=== PATIENT | male | born 1980 | race Caucasian/White ===

== ENCOUNTER 2018-10-26 11:26 | Inpatient (IN) ==
[2018-10-26] MEDS ORDERED: 0.9 % Sodium Chloride 1,000 ML IVC ONE (12:49)
[2018-10-26] MEDS ORDERED: Isovue-370 500 ML BOTTLE IVP ONE (12:49)
[2018-10-26] MEDS ORDERED: Vancomycin 1,750 MG in 0.9 % Sodium Chloride 250 ML IVPB STA (13:13)
[2018-10-26 13:19] LABS: Basophils # 0.1 K/mcL (0.0-0.2); Basophils % 0.7 %; Eosinophils # 0.4 K/mcL (0.0-0.6); Eosinophils % 6.1 %; Hematocrit 41.5 % (37.5-50.1); Hemoglobin 14.3 g/dL (12.9-16.9); Immature Granulocytes % 0.3 % (0-4); Lymphocytes # 2.5 K/mcL (0.6-4.6); Lymphocytes % 35.3 %; Mean Corpuscular HGB Conc 34.5 g/dL (31.6-35.5); Mean Corpuscular Hemoglobin 29.9 pg (28.0-33.3); Mean Corpuscular Volume 86.8 fL (83.0-100.0); Mean Platelet Volume 8.3 fL (9.4-12.4); Monocytes # 0.7 K/mcL (0.0-1.3); Neutrophils # 3.4 K/mcL (1.6-8.9); Platelet Count 286 K/mcL (140-400); Red Blood Count 4.78 M/mcL (4.19-5.50); Red Cell Distribution Width 12.5 % (11.5-14.5); Segmented Neutrophils % 47.6 %
[2018-10-26 13:44] LABS: BUN/Creatinine Ratio 14 (6-26); Blood Urea Nitrogen 15 mg/dL (6-20); Calcium 9.1 mg/dL (8.6-10.3); Carbon Dioxide 28 mEq/L (23-29); Chloride 104 mEq/L (98-107); Glucose 106 mg/dL (70-105); Osmolality,Calculated 287 (280-300); Potassium 4.2 mEq/L (3.5-5.1); Sodium 138 mEq/L (136-145); eGFR For Non-African Americans > 60 (> 60)
[2018-10-26 14:25] LABS: Bilirubin,Urine Small (Negative); Blood,Urine Negative (Negative); Clarity,Urine Clear (Clear); Color,Urine Dark Yellow (Yellow); Glucose,Urine (UA) Normal (Normal); Ketones,Urine Negative (Negative); Leukocyte Esterase,Urine Small (Negative); Nitrite,Urine Negative (Negative); Protein,Urine Negative (Neg-Trace); Specific Gravity,Urine 1.022 (1.010-1.025); Urobilinogen,Urine Normal (Normal)
[2018-10-26 14:28] LABS: Bacteria,Urine None Seen per hpf (None-Few); Hyaline Casts,Urine Few per lpf (None-Few); Squamous Epithelial Cell,Urine Many per lpf (None-Few)
[2018-10-26] MEDS ORDERED: Ondansetron 4 MG/2 ML VIAL IVP PRN (15:27)
[2018-10-26] MEDS ORDERED: Ibuprofen 600 MG TABLET PO PRN (15:27)
[2018-10-26] MEDS ORDERED: *HR* OxyCODONE Immed Rel 5 MG TABLET PO PRN (15:39)
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
[2018-10-26] MEDS: Piperacillin/Tazobactam 3.375 GM in 0.9 % Sodium Chloride Mini Bag 100 ML IVPB SCH ×2 (18:35→23:51)
[2018-10-26] MEDS: *HR* OxyCODONE/APAP 5/325 TABLET PO PRN (18:35)
[2018-10-27] MEDS: *HR* OxyCODONE/APAP 5/325 TABLET PO PRN ×2 (04:30→20:18)
[2018-10-27] MEDS: Pantoprazole 40 MG VIAL IVP SCH (05:37)
[2018-10-27 07:17] LABS: Basophils % 0.4 %; Eosinophils # 0.5 K/mcL (0.0-0.6); Eosinophils % 6.7 %; Hematocrit 39.3 % (37.5-50.1); Hemoglobin 13.5 g/dL (12.9-16.9); Immature Granulocytes % 0.1 % (0-4); Lymphocytes # 2.2 K/mcL (0.6-4.6); Lymphocytes % 30.7 %; Mean Corpuscular HGB Conc 34.4 g/dL (31.6-35.5); Mean Corpuscular Hemoglobin 29.8 pg (28.0-33.3); Mean Corpuscular Volume 86.8 fL (83.0-100.0); Mean Platelet Volume 8.2 fL (9.4-12.4); Monocytes # 0.5 K/mcL (0.0-1.3); Monocytes % 7.4 %; Neutrophils # 3.9 K/mcL (1.6-8.9); Platelet Count 256 K/mcL (140-400); Red Blood Count 4.53 M/mcL (4.19-5.50); Red Cell Distribution Width 12.4 % (11.5-14.5); Segmented Neutrophils % 54.7 %
[2018-10-27 07:39] LABS: BUN/Creatinine Ratio 11 (6-26); Blood Urea Nitrogen 12 mg/dL (6-20); Calcium 8.6 mg/dL (8.6-10.3); Carbon Dioxide 26 mEq/L (23-29); Chloride 104 mEq/L (98-107); Glucose 97 mg/dL (70-105); Osmolality,Calculated 286 (280-300); Potassium 4.2 mEq/L (3.5-5.1); Sodium 138 mEq/L (136-145); eGFR For Non-African Americans > 60 (> 60)
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
[2018-10-27] MEDS ORDERED: Folic Acid 1 MG TABLET PO SCH (09:00)
[2018-10-27] MEDS: Piperacillin/Tazobactam 3.375 GM in 0.9 % Sodium Chloride Mini Bag 100 ML IVPB SCH ×3 (09:05→23:56)
--- NOTE | 2018-10-27 14:23 | Discharge Summary ---
<Lisy Carmichael - Last Filed: 10/28/18 10:11> Orders not resulted at time of discharge: Pending orders 10/26/18 13:06 Culture,Blood [BC] Stat Date of Encounter: 10/28/18 Time of Encounter: 06:15 - Discharge Diagnosis (1) Cellulitis Priority: Primary Status: Acute Qualifiers: Site of cellulitis: trunk Site of cellulitis of trunk: abdominal wall Qualified Code(s): L03.311 - Cellulitis of abdominal wall (2) Chronic pain Priority: Secondary Status: Chronic Qualifiers: Qualified Code(s): G89.29 - Other chronic pain General Surgery Exam Initial Vital Signs Temp Pulse Resp BP Pulse Ox 98.0 F 65 16 125/77 97 10/26/18 11:51 10/26/18 11:51 10/26/18 11:51 10/26/18 11:51 10/26/18 11:51 - Additional Findings VITAL SIGNS: Reviewed. See [facility] GENERAL: In no apparent distress. HEENT: Normocephalic, atraumatic, pupils are equal and reactive, extraocular motions intact, there is no JVD noted. CHEST/RESPIRATORY: The thorax is free from signs of trauma. Lung sounds: clear to auscultation, normal respiratory effort CARDIAC: Regular rate and rhythm. Normal S1 and S2, without murmurs, gallops, or rubs. VASCULAR: No Edema. ABDOMEN: Soft, nontender, bowel sounds present, nondistended INCISION: Surgical incision is clean, dry, and intact. There is mild ecchymosis that is healing with warmth at infraumbilical region. Erythema is resolved. No purulence, bleeding, or drainage. No swelling. No fluctuance. MUSCULOSKELETAL: Good range of motion of all major joints. Extremities without clubbing, cyanosis or edema. NEUROLOGIC EXAM: Alert and oriented x 3. Speech normal. Follows commands. PSYCHIATRIC: Mood normal. SKIN: No rash or lesions. - Hospital Course Hospital course: Mr. Parkinson is a 38 year old male with past medical history of psoriasis on humira, chronic pain on Percocet and oxycodone, and migraine headaches. Patient recently had repair of umbilical hernia with mesh on 10/22/[address] Fam. Patient presented to ER on 10/26/18 with complaint of worsening redness of surgical site. Patient states redness started on 10/24. His mother, a nurse, marked around the borders. Next day, redness went past marked borders. Went to urgent care where he was prescribed Bactrim. Redness worsened after one day on bactrim, and patient came to ER. In the ER, patient had normal vitals and was afebrile. CBC, BMP, and UA were unremarkable. Exam showed erythema and ecchymosis with warmth around periumbilical incision site, extending downward in gravity-dependent fashion. CT abd/pelvis showed mild induration at periumbilical region with trace subcutaneous gas and fluid, likely postoperative. There was no abscess. Patient was given IVF and one dose of vancomycin. Patient was admitted to surgery service. Differential was cellulitis vs ecchymosis. Patient was started on zosyn. There was clinical improvement with resolution of erythema. Patient denies site tenderness, incisional pain, abdominal pain, nausea, fever. Passing flatus. Patient reports he has court date on 10/28. Will discharge with prescription for keflex. - Time Spent with Patient Total time spent providing and/or coordinating discharge services: Greater than 30 minutes (42 minutes) - Discharge Medications Home Medications: Citalopram [CeleXA] 20 mg PO DAILY 10/26/16 [History] Clobetasol Propionate 0.05% [Temovate] 1 appl TP BID PRN 10/26/16 [History] Oxycodone HCl/Acetaminophen [Percocet 10-325 mg Tablet] 1 tab PO Q6H PRN 10/26/16 [History] Adalimumab [Humira] 40 mg SQ Q2W 10/22/18 [History] Meclizine HCl [Verticalm] 25 mg PO TID PRN 10/22/18 [History] Metoclopramide [Reglan] 10 mg PO BID 10/22/18 [History] OxyCODONE Immed Rel [Roxicodone 10 MG] 10 mg PO Q4H 10/22/18 [History] RX: Folic Acid 1 mg PO DAILY 10/22/18 [History] RX: Ibuprofen [Motrin] 800 mg PO TID PRN 10/22/18 [History] Triamcinolone Acet 0.1% CRM [Kenalog] 1 appl TP BID PRN 10/22/18 [History] RX: Docusate Sodium 100 mg PO DAILY #10 capsule 10/25/18 [Rx] SUMAtriptan Succinate [Imitrex] 100 mg PO BID PRN 10/27/18 [History] cephALEXin [Keflex] 500 mg PO QID 14 Days #56 capsule 10/27/18 [Rx] Allergies/Adverse Reactions: Allergy/AdvReac Type Severity Reaction Status Date / Time No Known Allergies Allergy Verified 10/25/18 09:01 Date of admission: 10/26/18 16:06 Primary care physician: Celsa Quiñonez Discharging clinician: Juan F Fam Anticipated date of discharge: 10/28/18 Labs on day of discharge: Labs from last 24 hours 10/27/18 10/27/18 10/26/18 06:48 06:48 13:13 WBC 7.0 RBC 4.53 Hgb 13.5 Hct 39.3 MCV 86.8 MCH 29.8 MCHC 34.4 RDW 12.4 Plt Count 256 MPV 8.2 L Immature Gran % 0.1 Seg Neutrophils % 54.7 Lymphocytes % 30.7 Monocytes % 7.4 Eosinophils % 6.7 Basophils % 0.4 Neutrophils # 3.9 Lymphocytes # 2.2 Monocytes # 0.5 Eosinophils # 0.5 Basophils # 0.0 Sodium 138 Potassium 4.2 Chloride 104 Carbon Dioxide 26 BUN 12 Creatinine 1.09 Est GFR ( Amer) > 60 Est GFR (Non-Af Amer) > 60 BUN/Creatinine Ratio 11 Glucose 97 Calculated Osmolality 286 Calcium 8.6 Ur Specimen Adequacy See below A Urine Color Dark Yellow Urine Clarity Clear Urine pH 6.0 Ur Specific [place] 1.022 Urine Protein Negative Urine Glucose (UA) Normal Urine Ketones Negative Urine Blood Negative Urine Nitrite Negative Urine Bilirubin Small H Urine Urobilinogen Normal Ur Leukocyte Esterase Small H Urine Microscopic RBC 5-15 H Urine Microscopic WBC 5-15 H Ur Squamous Epith Cells Many H Urine Bacteria None Seen Hyaline Casts Few Ur Culture Indicated? NO. A Preliminary micro results at discharge 10/26/18 13:06 Blood Culture - Preliminary Peripheral Venipuncture Culture is incubating and being continuously monitored for growth. Final report to follow. 10/26/18 13:06 Blood Culture - Preliminary Peripheral Venipuncture Culture is incubating and being continuously monitored for growth. Final report to follow. - Impressions ITS Impressions Abdomen/Pelvis CT 10/26/18 12:50 IMPRESSION: Mild induration of the periumbilical region with a trace amount of subcutaneous gas and fluid, likely postoperative. No loculated fluid collection to suggest abscess. Unchanged mildly prominent upper abdominal lymph nodes. L5 pars defects with minimal anterolisthesis and associated moderate degenerative change. D/ / Young Kaplan / Young Kaplan Interpreting Provider: Young Kaplan - Patient Status Disposition: Home, Self-Care Condition: Good - Discharge Instructions Instructions: Cellulitis (GEN) Follow Up With: Celsa Quiñonez MD [Primary Care Provider] - 11/26/18 10:30 am Calin Dobson DO [Partnered Physician] - 11/03/18 11:45 am Yenni Gunter CNP [Advanced Practice Nurse] - 11/10/18 3:00 pm Forms: ED Satisfaction Letter, Work/School Release Additional Instructions: Please followup with PCP in next 3-5 days. Please return to ER if severely worsening symptoms such as worsening redness, fever, or drainage. - Diet and Activity Activity: resume usual activities as tolerated Diet: advance to your usual diet <Juan F Fam - Last Filed: 10/28/18 15:20> Orders not resulted at time of discharge: Pending orders 10/26/18 13:06 Culture,Blood [BC] Stat Date of Encounter: 10/28/18 General Surgery Exam Initial Vital Signs Temp Pulse Resp BP Pulse Ox 98.0 F 65 16 125/77 97 10/26/18 11:51 10/26/18 11:51 10/26/18 11:51 10/26/18 11:51 10/26/18 11:51 - Hospital Course Hospital course: Mr. Parkinson is a 38 year old male - Time Spent with Patient Total time spent providing and/or coordinating discharge services: Date of admission: 10/27/18 18:50 Primary care physician: Celsa Quiñonez Consults: 10/28/18 04:18 Consult to 911 Emergency Services Dispatcher [CONS] Stat Reason for SW Consult: Pt has court hearing at 0930 regarding custody of his child. If pt unable to make hearing, will not be able to see child for another 4 months. Labs on day of discharge: Labs from last 24 hours 10/28/18 10/28/18 03:31 03:31 WBC 7.4 RBC 4.97 Hgb 14.4 Hct 42.5 MCV 85.5 MCH 29.0 MCHC 33.9 RDW 12.1 Plt Count 297 MPV 8.2 L Sodium 137 Potassium 4.4 Chloride 105 Carbon Dioxide 27 BUN 16 Creatinine 1.27 Est GFR ( Amer) > 60 Est GFR (Non-Af Amer) > 60 BUN/Creatinine Ratio 13 Glucose 94 Calculated Osmolality 285 Calcium 9.2 Preliminary micro results at discharge 10/26/18 13:06 Blood Culture - Preliminary Peripheral Venipuncture Culture is incubating and being continuously monitored for growth. Final report to follow. 10/26/18 13:06 Blood Culture - Preliminary Peripheral Venipuncture Culture is incubating and being continuously monitored for growth. Final report to follow. - Impressions ITS Impressions Abdomen/Pelvis CT 10/26/18 12:50 IMPRESSION: Mild induration of the periumbilical region with a trace amount of subcutaneous gas and fluid, likely postoperative. No loculated fluid collection to suggest abscess. Unchanged mildly prominent upper abdominal lymph nodes. L5 pars defects with minimal anterolisthesis and associated moderate degenerative change. D/ / Young Kaplan / Young Kaplan Interpreting Provider: Young Kaplan - Attending Attestation I examined this patient and my medical decision-making was reviewed with the Resident Physician. I agree with the documented findings, disposition and treatment plan as described except to the extent set forth below. The patient is seen and evaluated on morning rounds with resident. The discoloration of the lower abdomen is almost completely gone. I am still not convinced that this was ever cellulitis. This may have been a small amount of bleeding in the subcutaneous tissue or even a worsening of his psoriasis. His white blood cell count was never elevated and he never had a temperature spike. He is discharged from the hospital on Keflex. Juan F Fam MD FACS
[2018-10-28 03:57] VITALS: BP 143/77
[2018-10-28 04:06] LABS: Hematocrit 42.5 % (37.5-50.1); Hemoglobin 14.4 g/dL (12.9-16.9); Mean Corpuscular HGB Conc 33.9 g/dL (31.6-35.5); Mean Corpuscular Volume 85.5 fL (83.0-100.0); Mean Platelet Volume 8.2 fL (9.4-12.4); Platelet Count 297 K/mcL (140-400); Red Blood Count 4.97 M/mcL (4.19-5.50); Red Cell Distribution Width 12.1 % (11.5-14.5)
[2018-10-28 04:23] LABS: BUN/Creatinine Ratio 13 (6-26); Blood Urea Nitrogen 16 mg/dL (6-20); Calcium 9.2 mg/dL (8.6-10.3); Carbon Dioxide 27 mEq/L (23-29); Chloride 105 mEq/L (98-107); Glucose 94 mg/dL (70-105); Osmolality,Calculated 285 (280-300); Potassium 4.4 mEq/L (3.5-5.1); Sodium 137 mEq/L (136-145); eGFR For Non-African Americans > 60 (> 60)
--- NOTE | 2018-10-28 05:50 | Event Note ---
Date of Encounter: 10/28/18 Time of Encounter: 02:57 Alerted by patient's nurse JENNIFER Montejo that pt. was concerned regarding a court appointment he has today in [place]. Pt. states that if he misses the appt. he will not have another one for several months and he will not see his son. Court hearing is in regards to custody. Patient is wondering as to if he will be discharged in time to be at the hearing tomorrow. Patient states that if necessary he will leave AMA in order to make the appointment however he states he would be fine with returning to the hospital afterwards. Nurse instructed to place SW consult and contact [employer] to determine when SW will be able to address this issue in the morning.
[2018-10-28] MEDS: Pantoprazole 40 MG VIAL IVP SCH (06:39)
== END 2018-10-28 07:20 | disposition home or self-care (01) | DRG 383 ==
LOC: 3ANU 11:26 → EMEROOARM 11:26 → 3ANU 18:05
PROVIDERS: ADMIT Surgery; ATTEND Surgery